=== PATIENT | female | born 1960 | race Caucasian/White ===

== ENCOUNTER 2021-08-30 10:09 | Observation (INO) | payer BC ==
[2021-08-30 11:11] LABS: BLOOD UREA NITROGEN,BUN 24 mg/dL (7.0-18.0); CARBON DIOXIDE,CO2 25.3 mmol/L (21.0-32.0); CHLORIDE,CL 103 mmol/L (98-107); GLUCOSE RANDOM 108 mg/dL (74-106); SODIUM,NA 141 mmol/L (136-145)
[2021-08-30 11:28] LABS: CORONAVIRUS COVID-19 NAA POSITIVE (NEGATIVE); INFLUENZA A NAA NEGATIVE (NEGATIVE); INFLUENZA B NAA NEGATIVE (NEGATIVE)
[2021-08-30] MEDS ORDERED: Enoxaparin 100 MG/1 ML Syringe SUBCUT ONE (13:02)
[2021-08-30] MEDS ORDERED: Docusate Sodium 100 MG Cap PO PRN (14:15)
[2021-08-30] MEDS ORDERED: Sodium Chloride 0.9% 10 ML Syringe FLUSH PRN (14:15)
[2021-08-30] MEDS ORDERED: Sodium Chloride 0.9% 2.5 ML Syringe FLUSH PRN (14:15)
[2021-08-30] MEDS ORDERED: Ondansetron 4 MG/2 ML SDV IVPUSH PRN (14:15)
[2021-08-30] MEDS ORDERED: Acetaminophen 325 MG Tab PO PRN (14:15)
[2021-08-30] MEDS ORDERED: Acetaminophen/HYDROcodone 325-5 MG Tab PO PRN (14:55)
[2021-08-30] MEDS ORDERED: Iopamidol 755 MG/ML 500 ML Multipack Bottle IVPUSH ONE (16:10)
[2021-08-31] MEDS ORDERED: Enoxaparin 100 MG/1 ML Syringe SUBCUT SCH (01:00)
[2021-08-31 06:37] LABS: CARBON DIOXIDE,CO2 27.3 mmol/L (21.0-32.0)
== END 2021-08-31 12:20 | disposition home or self-care (01) ==
LOC: MW.ED 10:09 → MW.MS 12:59
PROVIDERS: ADMIT Internal Medicine; ATTEND Internal Medicine
DX: U07.1 COVID-19 (principal); I26.99 Other pulmonary embolism without acute cor pulmonale; D64.9 Anemia, unspecified; Z79.899 Other long term (current) drug therapy; Z98.890 Other specified postprocedural states
CPT/HCPCS: 0240U; 36415; 71045; 71275; 80048; 80053; 81001; 82607; 82728; 82746; 83550; 83880; 84484; 85025; 85045; 85379; 85610; 93005; 93306; 93971; 96372; 99285; G0378; J1650; Q9967; 99217; 99219

== ENCOUNTER 2022-10-02 11:27 | Day surgery (SDC) | payer BC ==
[~2022-10-02 11:27] MED LIST: Lactated Ringers 1,000 ML IV SCH
[2022-10-02] MEDS ORDERED: Metoclopramide 10 MG/2 ML SDV IVPUSH PRN (11:36)
[2022-10-02] MEDS ORDERED: fentaNYL 50 MCG/ML SDV IVPUSH PRN (11:36)
[2022-10-02] MEDS ORDERED: HYDROmorphone 1 MG/ML Syringe IVPUSH PRN (11:36)
[2022-10-02] MEDS ORDERED: Morphine 2 MG/ML SYRINGE IVPUSH PRN (11:36)
[2022-10-02] MEDS ORDERED: Naloxone 0.4 MG/ML SDV IVPUSH PRN (11:36)
[2022-10-02] MEDS ORDERED: Albuterol 0.083% 2.5 MG/3 ML Neb Soln NEB PRN (11:36)
[2022-10-02] MEDS ORDERED: Ondansetron 4 MG/2 ML SDV IVPUSH PRN (11:36)
[2022-10-02] MEDS ORDERED: ceFAZolin 2 GM in Premix Bag 1 BAG IV SCH (12:00)
[2022-10-02] MEDS ORDERED: Dexamethasone 4 MG/ML 5 ML MDV ONE (12:17)
[2022-10-02] MEDS ORDERED: fentaNYL 100 MCG/2 ML SDV ONE (12:17)
[2022-10-02] MEDS ORDERED: Ketorolac 30 MG/ML SDV ONE (12:17)
[2022-10-02] MEDS ORDERED: Ropivacaine 0.5% 5 MG/ML 30 ML SDV ONE (12:17)
[2022-10-02] MEDS ORDERED: Propofol 200 MG/20 ML SDV ONE (12:17)
[2022-10-02] MEDS ORDERED: Lidocaine 2% 11 ML Jelly Filled Syringe ONE ×2 (12:17→12:21)
[2022-10-02] MEDS ORDERED: Lidocaine 2% 5 ML SDV ONE (12:17)
[2022-10-02] MEDS ORDERED: Ondansetron 4 MG/2 ML SDV ONE (12:17)
[2022-10-02] MEDS ORDERED: ceFAZolin 1 GM Vial ONE (12:46)
== END 2022-10-02 16:04 | disposition home or self-care (01) ==
LOC: MW.SDS 11:27
PROVIDERS: ATTEND Orthopaedic Surgery
DX: S82.121A Displaced fracture of lateral condyle of right tibia, initial encounter for closed fracture (principal); I26.99 Other pulmonary embolism without acute cor pulmonale; E78.00 Pure hypercholesterolemia, unspecified; Z79.899 Other long term (current) drug therapy; W00.0XXA Fall on same level due to ice and snow, initial encounter
CPT/HCPCS: 76000; 76000-26; A9270-GY; J0131; J0690; J1100; J1885; J2405; J2704; J2795; J3010; J3490; J7120

== ENCOUNTER 2025-06-12 06:51 | Day surgery (SDC) | payer BC ==
[2025-06-12] MEDS: Lactated Ringers 1,000 ML IV SCH (07:15)
[2025-06-12] MEDS ORDERED: propofoL 500 MG/50 ML 50 ML ONE (07:46)
[2025-06-12] MEDS ORDERED: Lactated Ringers 1,000 ML IV SCH (08:45)
== END 2025-06-12 09:35 | disposition home or self-care (01) ==
LOC: MW.SDS 06:51
PROVIDERS: ATTEND Surgery
DX: Z12.11 Encounter for screening for malignant neoplasm of colon (principal); K64.0 First degree hemorrhoids; K57.30 Diverticulosis of large intestine without perforation or abscess without bleeding; I12.9 Hypertensive chronic kidney disease with stage 1 through stage 4 chronic kidney disease, or unspecified chronic kidney disease; N18.32 Chronic kidney disease, stage 3b; E66.9 Obesity, unspecified; Z68.36 Body mass index [BMI] 36.0-36.9, adult; Z79.899 Other long term (current) drug therapy
CPT/HCPCS: 45378; J2704; J7120; 00812